=== PATIENT | male | born 1975 | race Caucasian/White ===

== ENCOUNTER → 2017-08-25 | Outpatient (CLI) | payer OTHER ==
[~2017-08-25] VITALS: Ht 162.6 cm; Wt 74.7 kg
[2017-08-25 14:16] VITALS: BP 110/76; PULSE 80; Ht 162.6 cm; Wt 74.7 kg
== END | disposition home or self-care (01) ==
LOC: C.NEUR 12:20
PROVIDERS: ATTEND Internal Medicine Pulmonary Disease
DX: G47.8 Other sleep disorders (principal); R06.83 Snoring; G47.33 Obstructive sleep apnea (adult) (pediatric); R53.83 Other fatigue; J34.2 Deviated nasal septum

== ENCOUNTER → 2017-09-14 | Outpatient (CLI) | payer OTHER ==
--- NOTE | 2017-09-15 06:07 | SPLIT NIGHT TECHNICIAN REPORT ---
[facility] Split Night Polysomnogram - Building Official Report Study date: 09/14/2017 Referring Physician: Eduardo Hernandez M.D. Name: TIMOTEO DOWNING Building Official: DAVID Akers. Date of : 1975 Height: 41 years, Height 5' 4" Sex: Male Weight: 164.7 lbs Age: 41 Neck Circum: 15 inches BMI: Medications: 28.27 Aleve 220 mg, Flonase 50 MCG, Sumatriptan 50 mg, Tramadol 50 mg Patient History 41 yr. old male here for a possible split night study if AHI >5. Patient is in room 5. Patient complains of witnessed apneas and loud snoring. Patients [place] Sleepiness Scale Score is 14/24. Parameters Monitored NPSG: E1-M2, E2-M1, Fp1-M2, Fp2-M1, F3-M2, F4-M2, F4-M1, C3-M2, C4-M2, C4-M1, O1-M2, O2-M2, O2-M1, T3-M2, T4-M1, P3-M2, P4-M1, CHIN1, CHIN2, HR, EKG, Legs, PFLOW, SNOR, FLOW, CFLOW, Tidal Volume, THOR, ABDO, SpO2, PLTH, CPRESS, ETCO2 Wave, ETCO2, pH SLEEP SUMMARY DATA DIAGNOSTIC TREATMENT Lights Out: 10:26:21 PM NONE Lights On: 1:53:51 AM 5:56:51 AM Total Recording Time (TRT): 207.6 min. 236.9 min. Total Sleep Time (TST): 109.5 min. 201.0 min. NREM Time: 109.5 min. 176.0 min. REM Time: 0.0 min. 25.0 min. Sleep Period Time (SPT): 202.0 min. 231.5 min. Sleep Efficiency (SE): 53 % 85 % Sleep Latency: 5.5 min. NONE min. Arousal Index: 12.6 4.2 PAP Treatment Levels: 4, 5, 6, 7, 9, 10, 14/9, 15/9, 16/9 * Optimal Pressure(s) SLEEP STAGING DATA DIAGNOSTIC TREATMENT Duration (min) TST % Duration (min) TST % Stage Wake: 98.1 min. -- 35.9 min. -- WASO: 92.5 min. -- 30.5 min. -- NREM: 109.5 min. 100 % 176.0 min. 88 % Stage N1: 75.5 min. 69 % 41.0 min. 20 % Stage N2: 34.0 min. 31 % 119.0 min. 59 % Stage N3: 0.0 min. 0 % 16.0 min. 8 % REM: 0.0 min. 0 % 25.0 min. 12 % POSITIONAL DATA Event Count Index Event Count Index Supine: 44 24.1 110 32.8 Supine NREM: 44 24.1 95 32.4 Supine REM: N/A N/A 15 36 Non-Supine: N/A N/A N/A N/A Non-Supine NREM: N/A N/A N/A N/A Non-Supine REM: N/A N/A N/A N/A AROUSAL SUMMARY DATA: Event Count Index Event Count Index Apnea Arousals: 0 8.2 4 17.6 Hypopnea Arousals: 0 0.0 2 0.6 Snore Arousals: 0 0.0 1 0.3 PLM Arousals: 0 0.0 0 0.0 Non-Specific Arousals: 19 10.4 6 1.8 Total Arousals: 23 12.6 14 4.2 MYOCLONUS (PLM) Event Count Index Event Count Index PLM: 0 0.0 0 0.0 PLM AROUSAL: 0 0.0 0 0.0 PLM W/O AROUSAL 0 0.0 0 0.0 PLM W/RESP EVENT 0 0.0 0 0.0 MYOCLONUS (PLM) Event Count Index Event Count Index LM: 5 9.3 30 9.0 LM AROUSAL: 5 2.7 4 1.2 LM W/O AROUSAL LM W/RESP EVENT LM NON SPECIFIC 12 6.6 24 7.2 HEART RATE DATA DIAGNOSTIC TREATMENT Sleep (bpm): 69 64 REM (bpm): N/A 93 NREM (bpm): 93 93 Tachycardia Count: 0 0 Tachycardia Duration: 0.00 0 Bradycardia Count: 0 0 Bradycardia Duration: 0.00 0 DIAGNOSTIC PORTION TREATMENT PORTION RESPIRATORY DATA Event Count Index Event Count Index AHI: -- 24.1 -- 32.8 RDI: -- 24.1 -- 33 Obstructive Apnea: 0 0.0 3 0.9 Central Apnea: 15 8.2 56 16.7 Mixed Apnea: 0 0.0 0 0.0 Hypopnea: 29 15.9 51 15.2 RERA: 0 0.0 0 0.0 Total Apneas: 15 8.2 59 17.6 RESPIRATORY DATA REM NREM SLEEP REM NREM SLEEP Supine Position: Obstructive Apneas: N/A 0 0 3 0 3 Central Apneas: N/A 15 15 0 56 56 Mixed Apneas: N/A 0 0 0 0 0 Hypopneas: N/A 29 29 12 39 51 RERA N/A 0 0 0 0 0 Total Supine Events: N/A 44 44 15 95 110 Supine AHI: N/A 24.1 24.1 36 32.4 32.8 Supine RDI: N/A 24.1 24.1 36.0 32.4 32.8 REM NREM SLEEP REM NREM SLEEP Non-Supine Position: Obstructive Apneas: N/A N/A N/A N/A N/A N/A Central Apneas: N/A N/A N/A N/A N/A N/A Mixed Apneas: N/A N/A N/A N/A N/A N/A Hypopneas: N/A N/A N/A N/A N/A N/A RERA N/A N/A N/A N/A N/A N/A Total Supine Events: N/A N/A N/A N/A N/A N/A Supine AHI: N/A N/A N/A N/A N/A N/A Supine RDI: N/A N/A N/A N/A N/A N/A OXYGEN DESTAURATION DATA: Event Count Index Event Count Index REM Desaturations: N/A N/A 15 36.0 NREM Desaturations: 61 33.4 69 23.5 SNORE DATA DIAGNOSTIC TREATMENT Snore Time: 0.2 2:02:51 AM Snore TST%: 0 2 Snore Arousal Count: 0 1 Snore Arousal Index: 0.0 0.3 Desaturation Event Summary: Minimum %SpO2 Event Count Mean/Min/Max Duration(sec.) Desaturation Index % Time In Bed > 90 157 29.4 / 10.3 / 60.0 22.9 92.6 86 - 90 0 N/A 0.0 6.9 81 - 85 0 N/A 0.0 0.3 76 - 80 0 N/A 0.0 0.2 71 - 75 0 N/A 0.0 0.0 66 - 70 0 N/A 0.0 0.0 61 - 65 0 N/A 0.0 0.0 56 - 60 0 N/A 0.0 0.0 51 - 55 0 N/A 0.0 0.0 < 50 0 N/A 0.0 0.0 OXYGEN SATURATION DATA DIAGNOSTIC TREATMENT SpO2 Mean Sleep: 93 % 93 % SpO2 Mean REM: N/A % 93 % SpO2 Mean NREM: 93 % 93 % SpO2 Minimum Sleep: 86 % 77 % SpO2 Minimum REM: N/A % 85 % SpO2 Minimum NREM: 86 % 77 % Time Below 90% (TST): 4.0 12.2 Time Below 88% (TST): 0.7 4.2 Total REM NREM Awake <50% 0.0 min. 0.0 min. 0.0 min. 0.0 min. 51 - 60% 0.0 min. 0.0 min. 0.0 min. 0.0 min. 61 - 70% 0.0 min. 0.0 min. 0.0 min. 0.0 min. 71 - 80% 0.8 min. 0.0 min. 0.8 min. 0.0 min. 81 - 90% 32.2 min. 2.5 min. 23.0 min. 6.7 min. 91 - 100% 411.5 min. 22.6 min. 261.7 min. 127.2 min. Average 93 93 93 93 Minimum SpO2 77 85 77 88 Desaturation Event Index 21.2 36.0 27.3 6.7 # Desat. Events below 89% 29 6 23 0 Time(%) with Saturation below 89% 2.1 0.2 1.7 0.1 Time(min.) with Saturation below 89% 9.2 1.0 7.8 0.4 Recording Building Official Comments: Mr. Downing slept in the supine position. No cardiac arrhythmia or PLMs noted. No bruxism noted. Snoring was noted and scored as a 1 on a scale of 0 through 5. (0=no snoring, 5=snoring loud enough to be heard through a closed door or down the [address]rias way) At 1:57 am Mr. Downing met specific Split-Night criteria during the diagnostic portion of this study. CPAP was initiated at +4 CMH2O and up-titrated to a level of +10 CMH2O Cflex,. At this pressure patient was still having central apneas and was switched to BIPAP. IPAP of +14 CMH2O and an EPAP of +9 CMH2O up-titrated to a level of: IPAP 16 CMH2O, EPAP + 9 CMH20 BiFlex with a rate of 10 BPM, which nearly eliminated all respiratory events and snoring. A medium [employer] Simplus was used during titration. Mr. Downing did not wake to use the restroom during the night. Mr. Downing stated, "(Example) I did not sleep as well as I do when I am in my own bed". The final report will be interpreted and signed by a sleep physician. The completed physician report will then be placed in the patient medical record. Therapy Event: Therapy (cm H20) 0 4 5 6 7 9 10 14/ 15/9 16/9 Total Time at Pressure (min.) 207.6 61.8 13.7 11.5 16.5 17.1 11.9 23.9 39.4 41.1 TST at Pressure (min.) 109.5 44.4 12.7 11.0 16.5 17.1 9.4 13.4 36.4 40.1 # Periods 1 1 1 1 1 1 1 1 1 1 Sleep Onset (min.) 5.5 5.4 0.0 0.0 0.0 0.0 0.0 0.0 0.0 0.0 REM Onset (min.) N/A N/A N/A N/A 10.9 0.0 0.0 N/A N/A N/A Sleep Efficiency % 52 71 92 95 100 100 79 56 92 97 Wakefulness (%) 47.2 28.2 7.3 4.3 0.0 0.0 20.9 43.9 7.6 2.4 Wakefulness (min.) 98.1 17.4 1.0 0.5 0.0 0.0 2.5 10.5 3.0 1.0 NREM 1 (%) 36.4 51.0 7.3 4.3 0.0 0.0 16.8 14.6 5.1 1.2 NREM 1 (min.) 75.5 31.5 1.0 0.5 0.0 0.0 2.0 3.5 2.0 0.5 NREM 2 (%) 16.4 20.8 85.4 91.3 66.1 0.0 42.9 41.4 87.3 57.4 NREM 2 (min.) 34.0 12.9 11.7 10.5 10.9 0.0 5.1 9.9 34.4 23.6 NREM 3 (%) 0.0 0.0 0.0 0.0 0.0 0.0 0.0 0.0 0.0 38.9 NREM 3 (min.) 0.0 0.0 0.0 0.0 0.0 0.0 0.0 0.0 0.0 16.0 REM (%) 0.0 0.0 0.0 0.0 33.9 100.0 19.4 0.0 0.0 0.0 REM (min.) 0.0 0.0 0.0 0.0 5.6 17.1 2.3 0.0 0.0 0.0 # Arousals 23 4 0 0 0 1 3 3 1 2 Arousal Index 12.6 5.4 0.0 0.0 0.0 3.5 19.1 13.4 1.6 3.0 # Snore 10 2 15 5 25 55 11 4 52 20 Snore Index 5.5 2.7 71.1 27.2 90.7 193.2 69.9 17.9 85.7 29.9 AHI 24.1 44.6 66.4 38.1 43.5 28.1 50.9 58.2 21.4 3.0 AHI Supine 24.1 44.6 66.4 38.1 43.5 28.1 50.9 58.2 21.4 3.0 AHI Non-Supine N/A N/A N/A N/A N/A N/A N/A N/A N/A N/A NREM AHI 24.1 44.6 66.4 38.1 32.9 N/A 59.0 58.2 21.4 3.0 REM AHI N/A N/A N/A N/A 64.3 28.1 25.8 N/A N/A N/A RDI 24.1 44.6 66.4 38.1 43.5 28.1 50.9 58.2 21.4 3.0 # Obstructive 0 0 0 0 3 0 0 0 0 0 # Central Ap 15 28 4 0 1 0 7 12 4 0 # Mixed 0 0 0 0 0 0 0 0 0 0 # Hypopneas 29 5 10 7 8 8 1 1 9 2 RERAS 0 0 0 0 0 0 0 0 0 0 Total Respiratory Events 44 33 14 7 12 8 8 13 13 2 Time Below SpO2 89.00% (min.) 2.3 0.1 0.4 0.4 0.9 0.3 0.0 3.2 0.9 0.2 Mean NREM SpO2 (%) 93 94 92 93 93 N/A 94 91 93 93 Mean REM SpO2 (%) N/A N/A N/A N/A 92 94 94 N/A N/A N/A Mean Sleep SpO2 (%) 93 94 92 93 93 94 94 91 93 93 Min NREM SpO2 (%) 86 88 88 88 88 N/A 89 77 87 87 Min REM SpO2 (%) N/A N/A N/A N/A 85 85 91 N/A N/A N/A Position Supine (min.) 109.5 44.4 12.7 11.0 16.5 17.1 9.4 13.4 36.4 40.1 Position Non-supine (min.) 0.0 0.0 0.0 0.0 0.0 0.0 0.0 0.0 0.0 0.0 LM Index Sleep 9.3 10.8 9.5 5.4 7.3 49.2 0.0 0.0 3.3 1.5 LM Index NREM 9.3 10.8 9.5 5.4 5.5 N/A 0.0 0.0 3.3 1.5 LM Index REM N/A N/A N/A N/A 10.7 49.2 0.0 N/A N/A N/A Mean Heart Rate (bpm) 69 67 65 64 66 70 63 61 61 62 Min Heart Rate (bpm) 59 60 60 57 58 59 54 56 56 57
--- NOTE | 2017-09-18 09:35 | POLYSOMNOGRAPH REPORT ---
CLINICAL DATA: A 41-year-old male with BMI of 28.27, referred by myself and NORMA Camacho from the [place] for a sleep study. The patient has a previous history of sleep apnea, witnessed apnea, loud snoring and unrefreshing sleep. His [place] Sleepiness score was 14/24. This was a split-night study. SLEEP ARCHITECTURE: Total sleep period was 202 minutes. Total sleep time was 109.5 minutes, all non-REM sleep. Sleep latency was 5.5 minutes. Sleep efficiency was 53%. Arousal index of 12.6. Sleep consisted of stage N1 69% and stage N3 31%. For the treatment portion of the study, sleep period time was 231.5 minutes. Total sleep time was 201 minutes divided between 176 minutes of non-REM sleep and 25 minutes of REM sleep. Sleep latency was immediate. Sleep efficiency was 85%. Sleep consisted of stage N1 20%, stage N2 59%, stage N3 8% and REM 12%. AROUSAL DATA: Prior to treatment, 23 arousals recorded for an index of 12.6 per hour. With treatment, 14 arousals recorded for an index of 4.2 per hour. PERIODIC LIMB MOVEMENT DATA: Prior to treatment, 12 PLMs were noted for an index of 6.6 per hour. With treatment, 30 limb movements were noted for an index of 9 per hour. EKG: Heart rates ranged from 64-93 beats per minute. No arrhythmias were noted. RESPIRATORY DATA: Moderate sleep apnea was documented prior to treatment. The diagnostic AHI was 24.1. There were 15 central apneic episodes and 29 hypopneic episodes recorded. With treatment, the average AHI was 32.8. There were 3 obstructive, 56 central apneic episodes and 51 hypopneic episodes. OXIMETRY DATA: Very mild nocturnal hypoxemia was seen. Oxygen tom was 77% during non-REM sleep. Mean saturation with treatment was 93%. DATA SME'S COMMENTS: The patient slept supine. Snoring was mild, rated 1 on a scale of 1-5. At 1:57 a.m., the patient met split night criteria. He used a medium [employer] Simplus mask. He was initially started on CPAP, but then because of central apneic episodes, was switched to BiPAP. At his final pressure setting of BiPAP 16/9, Bi-Flex 2 with a backup rate of 10, the patient slept for 40 minutes with an AHI of 3. IMPRESSION: Moderate sleep apnea/hypopnea with development of treatment onset central apneic episodes consistent with complex sleep apnea, corrected with BiPAP 21/03, Bi-Flex 2 with a backup rate of 10 breaths per minute. RECOMMENDATIONS: The patient could be started on the above-noted treatment regimen or considered for a trial of auto-CPAP. Clinical correlation is needed. MTDD
== END | disposition home or self-care (01) ==
LOC: C.NEUR 21:00
PROVIDERS: ATTEND Internal Medicine Pulmonary Disease
DX: J34.2 Deviated nasal septum (principal); G47.30 Sleep apnea, unspecified